=== PATIENT | male | born 1990 | race Caucasian/White ===

== ENCOUNTER 2017-09-17 22:40 | Emergency (ER) | payer SELFPAY ==
[~2017-09-17] VITALS: Ht 182.9 cm; Wt 131.8 kg
[2017-09-17 22:46] VITALS: TEMP 36.8; Ht 182.9 cm; Wt 131.8 kg
[2017-09-17] MEDS ORDERED: PENI-82 PO (23:22)
[2017-09-17] MEDS: NORCO 5/325MG HOME PACK PO ONE (23:41)
[2017-09-17] MEDS: PENICILLIN HOME PACK 500MG (4 DOSES)BTL PO ONE (23:42)
[2017-09-17 23:46] VITALS: BP 171/84; PULSE 84; O2SAT 96
--- NOTE | 2017-09-18 06:21 | EMERGENCY ROOM VISIT NOTE ---
ED Visit Note First contact with patient: 23:09 CHIEF COMPLAINT: Toothache HISTORY OF PRESENT ILLNESS: This 27 year old male patient presented to the emergency department with a progressive toothache for past 2-3 days. The patient believes it is coming from a left lower molar. The pain is now steady and severe and radiates to the face. The patient does not have a dentist appointment set up. They rate their pain a 9/10 and the ibuprofen and Tylenol they have been taking has not relieved the pain. Denies facial swelling or fever. The patient denies any discharge from the mouth. REVIEW OF SYSTEMS: A 6 system review of systems was completed with positives and pertinent negatives listed in the HPI. ALLERGIES: No known allergies MEDICATIONS: No chronic medication PMH: Otherwise healthy SOCIAL HISTORY: Recently moved to the area. Previously lived in [place]. PHYSICAL EXAM: Vitals are noted on the nurse's note and reviewed by myself. Vital signs stable. GENERAL: White male, in no acute distress, nondiaphoretic, well-developed well- nourished. Mouth: The left lower first, second, and third molars tooth are very carious and the gum is swollen and tender around it, without any discharge or signs of an abscess. The remainder of the pharynx and tonsils are without erythema, edema, or exudate. The airway is patent. There is no facial swelling, cervical or submandibular lymphadenopathy. The patient appears uncomfortable and in pain. The patient has overall poor dental hygiene. EARS: External auditory canals clear, tympanic membranes pearly wyatt without erythema or effusion bilaterally. HEART: Regular rate and rhythm without murmur gallop or rub LUNG: Clear to auscultation bilateral ED COURSE: Physical exam and history were performed. Nursing notes and EMR were reviewed. The patient has poor dentition. He is having pain of the left lower jaw. I do not appreciate a distinct abscess or evidence of [place] some. There is no facial swelling. The patient has never been seen at this facility with his complaint. There are no concerning findings in the PDMP. The patient will be given a course of Pen-Vee K and a home pack of Vicodin. He was thoroughly educated to follow with her dentist for definitive care. He was otherwise invited back to the ER with any new, worsening, or concerning symptoms. Current/Historical Medications Scheduled Penicillin V Potassium (Veetids), 500 MG PO QID Allergies Coded Allergies: No Known Allergies (Unverified , 09/17/17) Vital Signs Date Time Temp Pulse Resp B/P (MAP) Pulse Ox O2 Delivery O2 Flow Rate FiO2 09/17/17 23:46 84 18 171/84 96 09/17/17 22:46 36.8 84 18 171/84 96 Room Air Medications Administered Medications (Trade) Dose Ordered Sig/Ling Route Start Time Stop Time Status Last Admin Dose Admin Penicillin V Potassium (Pen-Vk 500MG Home Pack) 1 homepack UD ONCE PO 09/17/17 23:30 09/17/17 23:31 DC 09/17/17 23:42 1 HOMEPACK Acetaminophen/ Hydrocodone Bitart ([place] 5/325mg Home Pack) 1 homepack UD ONCE PO 09/17/17 23:30 09/17/17 23:31 DC 09/17/17 23:41 1 HOMEPACK Departure Information Impression Primary Impression: Pain, dental Dispostion Home / Self-Care Condition GOOD Prescriptions Penicillin V Potassium (Veetids) 500 Mg Tab 500 MG PO QID, #40 TAB Prov: Mikal Calhoun PA-C 09/17/17 Forms HOME CARE DOCUMENTATION FORM, IMPORTANT VISIT INFORMATION Patient Instructions My [facility] Additional Instructions You were seen and evaluated today on an emergency basis only. This is not a substitute for, or an effort to provide, complete comprehensive medical care. It is not possible to recognize and treat all injuries or illnesses in a single emergency department visit. For this reason it is recommended that you followup with a dentist as soon as possible for definitive care. The emergency department is not able to treat ongoing dental issues. Pen-Vee K 500 mg 4 times daily for the next 10 days. For baseline pain relief you may alternate ibuprofen and acetaminophen every 4 hours for pain control. Take 600 mg ibuprofen (Advil) and then 4 hours later take 1000 mg acetaminophen (Tylenol). Do not take more than 3000 mg acetaminophen in a single day. [place] (hydrocodone/acetaminophen) 5/325 mg (homepack) every 6 hours as needed for worsening breakthrough pain. Do not drink or drive on [place]. This medication will likely make you tired. Do not take [place] and Tylenol at the same time as both contain acetaminophen. [place] may cause constipation. You may wish to take an [id number] stool softener like Colace if this occurs. You are welcome to return to the emergency department anytime with new, worsening, or concerning symptoms.
== END 2017-09-17 23:47 | disposition home or self-care (01) ==
LOC: C.EDB 22:42 → C.EDD 23:47
DX: K08.89 Other specified disorders of teeth and supporting structures (principal)